=== PATIENT | female | born 2000 | race Caucasian/White ===

== ENCOUNTER 2023-07-12 17:05 | Emergency (ER) | payer OTHER, SELFPAY ==
[2023-07-12] VITALS (9 sets, daily range): BP systolic 94–133; BP diastolic 51–67; PULSE 50–79; RESP 18–27; TEMP 37; O2SAT 97–100
--- NOTE | 2023-07-12 18:00 | PC.NURSE ---
Pt syncopized during IV insertion. Pt placed supine and placed on cardiac monitoring. Staff assist activated for extra hands at bedside. Seizure pads placed. Pt requests using the bathroom before next needle stick. Pt was made comfortable and instructed to call us when she was ready to use the bathroom. Pt S/O Ngaa at bedside. Pt requests Naga to be in the bathroom with her when she ambulates.
[2023-07-12 18:43] LABS: Bacteria Urine None Seen; Culture Indicated Urine Specimen Cultured; RBC Urine None Seen (0-5/HPF); Squamous Epithelial Cell Urine 1-5 /HPF (0-5/HPF); Urine Volume 10mL (spun); WBC Urine 10-30/HPF (0-5/HPF)
[2023-07-12 18:57] LABS: Add Manual Diff / Slide Review NO; Basophils Absolute Auto 0 /uL (0-100); Basophils Percent Auto 0.4 % (0-2); Eosinophils Absolute Auto 100 /uL (0-450); Eosinophils Percent Auto 0.7 % (2-4); Hematocrit 38.7 % (36-46); Hemoglobin 13.3 g/dL (12.0-16.0); Lymphocytes Absolute Auto 2500 /uL (1100-4500); Lymphocytes Percent Auto 30.6 % (25-40); Mean Corpuscular HGB Conc 34.4 % (30-36); Mean Corpuscular Hemoglobin 29.8 PG (26-34); Mean Corpuscular Volume 86.6 fL (80-100); Monocytes Absolute Auto 400 /uL (0-900); Monocytes Percent Auto 4.8 % (3-14); Neutrophils Absolute Auto 5100 /uL (1500-7000); Neutrophils Percent Auto 63.5 % (50-75); Platelet Count 197 X10^3/uL (150-400); Red Blood Cell Count 4.47 X10^6/uL (4.0-5.2); Red Cell Distribution Width 12.1 % (11.6-14.8); White Blood Cell Count 8.1 X10^3/uL (4.5-11.0)
[2023-07-12 19:02] LABS: Alanine Aminotransferase 16 IU/L (<35); Albumin 4.1 g/dL (3.5-5.0); Albumin Globulin Ratio 1.5 (1.0-2.8); Alkaline Phosphatase 44 U/L (38-126); Aspartate Aminotransferase 23 IU/L (14-36); BUN Creatinine Ratio 22.1 (6-22); Bilirubin Total 0.7 mg/dL (0.2-1.3); Blood Urea Nitrogen 15 mg/dL (7-17); Calcium 9.4 mg/dL (8.4-10.2); Carbon Dioxide 25 mmol/L (22-32); Chloride 107 mmol/L (98-107); Estimated Glomerular Filt Rate > 60 mL/min (>60); Globulin 2.8 g/dL (1.7-4.1); Glucose 91 mg/dL (70-100); HEMOLYSIS < 15 (0-50); Potassium 3.7 mmol/L (3.4-5.1); Sodium 137 mmol/L (137-145); Total Protein 6.9 g/dL (6.3-8.2)
--- NOTE | 2023-07-12 19:22 | ED_ITS ---
HPI - Abdominal Pain General Chief Complaint: Abdominal Pain Stated Complaint: adb and back pain Time Seen by Provider: 07/12/23 17:27 Source: patient Mode of arrival: Ambulatory History of Present Illness HPI narrative: Patient is a 23-year-old healthy female with history of nonepileptic/pseudoseizures presents today with abdominal pain and vaginal discharge. She is thought that she had a UTI for about 2 months. She had some abnormal vaginal discharge green in color with foul smell. No fever or chills. She had a little bit itching sometimes. Mild dysuria. She has been trying to go to a walk-in clinic but unable to do so. Related Data Previous Rx's Medication Instructions Recorded cephalexin 500 mg capsule 500 mg PO BID 5 days #10 caps 07/12/23 doxycycline hyclate 100 mg capsule 100 mg PO BID #14 caps 07/13/23 Allergies Allergy/AdvReac Type Severity Reaction Status Date / Time No Allergy Information Allergy Verified 07/12/23 20:50 Available Patient History Medical History (Updated 07/12/23 @ 20:16 by Mari Godoy DO) History of psychogenic nonepileptic seizure Exam Initial Vital Signs Initial Vital Signs: Vital Signs Temperature 98.6 F 07/12/23 17:19 Pulse Rate 79 07/12/23 17:19 Respiratory Rate 18 07/12/23 17:19 Blood Pressure 133/60 07/12/23 17:19 Pulse Oximetry 99 07/12/23 17:19 Oxygen Delivery Method Room Air 07/12/23 17:19 GENERAL: Well-appearing, well-nourished and in no acute distress. HEENT: Head atraumatic,EOMI, pupils reactive, face symmetric, moist mucous membranes CARDIOVASCULAR: Regular rate and rhythm without murmurs, rubs or gallops. RESPIRATORY: Breath sounds equal bilaterally, no wheezes rales or rhonchi. ABDOMEN: Soft, nontender. Normoactive bowel sounds all 4 quadrants. No guarding or rebound. PELVIC: External genitalia is normal, no vaginal bleeding, no white thickened discharge no foul smell no greenish yellow discharge IUD string is seen, no odor, cervical os is closed, no adnexal tenderness : No CVA tenderness EXTREMITIES: Normal range of motion, no clubbing or edema. Neurovascularly intact NEUROLOGICAL: Alert and oriented x4. SKIN: Warm, dry, no laceration, no petechiae, no rashes or lesions. Course Orders Ordered: Discontinued Medications Cefazolin Sodium (Cephalexin 250 Mg Cap Prepack) 1 bottle MISC DIRECTED ONE Stop: 07/12/23 20:19 Last Admin: 07/12/23 20:29 Dose: 500 mg Documented By: JACOB Vital Signs Vital signs: Vital Signs - 8 hr 07/12/23 17:19 07/12/23 17:55 07/12/23 17:56 Temperature 98.6 F Pulse Rate 79 51 L Respiratory Rate 18 Blood Pressure 133/60 94/51 L Pulse Oximetry 99 99 Oxygen Delivery Method Room Air 07/12/23 17:56 07/12/23 18:00 07/12/23 18:00 Temperature Pulse Rate 50 L 54 L Respiratory Rate 23 27 H Blood Pressure 108/67 Pulse Oximetry 99 100 Oxygen Delivery Method Room Air 07/12/23 18:21 07/12/23 18:21 07/12/23 18:30 Temperature Pulse Rate 50 L Respiratory Rate 18 Blood Pressure 108/67 94/60 Pulse Oximetry 99 Oxygen Delivery Method 07/12/23 18:30 07/12/23 19:00 07/12/23 19:00 Temperature Pulse Rate 54 L 50 L Respiratory Rate 24 26 H Blood Pressure 99/54 L Pulse Oximetry 97 98 Oxygen Delivery Method Room Air 07/12/23 19:30 07/12/23 19:30 07/12/23 20:00 Temperature Pulse Rate 51 L Respiratory Rate 21 Blood Pressure 101/56 L 103/58 L Pulse Oximetry 98 Oxygen Delivery Method Room Air 07/12/23 20:00 Temperature Pulse Rate 52 L Respiratory Rate 23 Blood Pressure Pulse Oximetry 97 Oxygen Delivery Method Room Air MDM - Abdominal Pain Lab Data 07/12/23 18:45 07/12/23 18:45 Labs: Lab Results 07/12/23 07/12/23 Range/Units 18:24 18:45 WBC 8.1 (4.5-11.0) X10^3/uL RBC 4.47 (4.0-5.2) X10^6/uL Hgb 13.3 (12.0-16.0) g/dL Hct 38.7 (36-46) % MCV 86.6 (80-100) fL MCH 29.8 (26-34) PG MCHC 34.4 (30-36) % RDW 12.1 (11.6-14.8) % Plt Count 197 (150-400) X10^3/uL Neut % (Auto) 63.5 (50-75) % Lymph % (Auto) 30.6 (25-40) % [place] % (Auto) 4.8 (3-14) % Eos % (Auto) 0.7 L (2-4) % Baso % (Auto) 0.4 (0-2) % Neut # (Auto) 5100 (5748-6490) /uL Lymph # (Auto) 2500 (0948-5747) /uL [place] # (Auto) 400 (0-900) /uL Eos # (Auto) 100 (0-450) /uL Baso # (Auto) 0 (0-100) /uL Sodium 137 (137-145) mmol/L Potassium 3.7 (3.4-5.1) mmol/L Chloride 107 (98-107) mmol/L Carbon Dioxide 25 (22-32) mmol/L BUN 15 (7-17) mg/dL Creatinine 0.68 (0.52-1.04) mg/dL Estimated GFR > 60 (>60) mL/min BUN/Creatinine Ratio 22.1 H (6-22) Glucose 91 (70-100) mg/dL Calcium 9.4 (8.4-10.2) mg/dL Total Bilirubin 0.7 (0.2-1.3) mg/dL AST 23 (14-36) IU/L ALT 16 (<35) IU/L Alkaline Phosphatase 44 (38-126) U/L Total Protein 6.9 (6.3-8.2) g/dL Albumin 4.1 (3.5-5.0) g/dL Globulin 2.8 (1.7-4.1) g/dL Albumin/Globulin Ratio 1.5 (1.0-2.8) Urine RBC None seen (0-5/HPF) Urine WBC 10-30/hpf H (0-5/HPF) Ur Squamous Epith Cells 1-5 /hpf (0-5/HPF) Urine Bacteria None seen (None) Ur Culture Indicated? Specimen cultured Vol Urine Centrifuged 10ml (spun) Ur Chlamydia DNA (PCR) Detected H N gonorrhoeae DNA (PCR) Not detected Point of care testing: Point of Care Testing Test Results Negative Urine Dip Bedside Urine Glucose Negative Bedside Urine Bilirubin - Negative Bedside Urine Ketone - Negative Urine Specific Gerald[place] 1.015 Bedside Urine Occult Blood +/- Bedside Urine pH 8.0 Bedside Urine Protein - Negative Bedside Urine Urobilinogen - Negative Bedside Urine Nitrite - Negative Bedside Urine Leukocytes ++ 125 Esterase MDM Narrative Medical decision making narrative: Patient 23-year-old female presents today with ongoing vaginal discharge. She thought she has had a UTI for couple of months. Urinalysis does have leukocytes. Pelvic exam does show some discharge. Cultures are sent. I will personally call patient back with urine gonorrhea chlamydia results. Initially treated for UTI. Urine positive for chlamydia prescription for doxycycline sent 07/14/2023 09:50am-personally called and told patient of her chlamydia results. Encouraged her to get all partners treated Discharge Plan Departure Patient Disposition: Home Clinical Impression: UTI (urinary tract infection) Instructions: DI for Urinary Tract Infection (UTI) Activity Restrictions/Additional Instructions: *You have been diagnosed with UTI *What to do: This time you may have like mild UTI. Cultures for gonorrhea and chlamydia are pending. We will call you only if they are positive. If you would like to know you may call us in about 3 days for results. *Continue to take medications as directed Keflex 500 mg twice a day for 5 days *Follow up with your primary care provider in 2-3 days or call [phone] *Return to ER if you should have increasing pain fever chills or any new, worsening or concerning symptoms Prescriptions: New cephalexin 500 mg capsule 500 mg PO BID 5 Days Qty: 10 0RF doxycycline hyclate 100 mg capsule 100 mg PO BID Qty: 14 0RF Referrals: Miscellaneous,DoctorMD [Primary Care Provider] - Stand Alone Forms: Patient Portal/API
[2023-07-12] MEDS: cephALEXin 250 MG CAP PREPACK 1 BOTTLE MISC (20:29)
[2023-07-12 21:30] LABS: Urine N gonorrhoeae NOT DETECTED
[2023-07-12 21:38] LABS: Urine Chlamydia DETECTED
[2023-07-17 01:52] LABS: Chlamydia trachomatis Positive (Negative); Mycoplasma genitalium Negative (Negative); Neisseria gonorrhoeae Negative (Negative)
== END 2023-07-12 20:33 | disposition home or self-care (01) ==
PROVIDERS: Emergency Medicine; Emergency Provider Emergency Medicine
DX: N39.0 Urinary tract infection, site not specified (principal)
CPT/HCPCS: 36415; 80053; 81003; 81015; 81025; 85025; 87070; 87077; 87086; 87205; 87210; 87491; 87563; 87591; 99283